=== PATIENT | female | born 1970 | race Caucasian/White ===

== ENCOUNTER 2021-03-04 09:53 | Day surgery (SDC) | payer BC ==
[2021-03-04] MEDS ORDERED: Ketorolac 30 MG/ML SDV IVPUSH ONE (09:54)
[2021-03-04] MEDS ORDERED: Ondansetron 4 MG/2 ML SDV IVPUSH ONE (09:54)
[2021-03-04] MEDS ORDERED: Dexamethasone 4 MG/ML 5 ML MDV IVPUSH ONE (09:54)
[2021-03-04] MEDS ORDERED: ceFAZolin 1 GM Vial IVPUSH ONE (09:54)
[2021-03-04] MEDS ORDERED: Dexmedetomidine 200 MCG/2 ML SDV IV ONE (09:54)
[2021-03-04] MEDS ORDERED: fentaNYL 100 MCG/2 ML SDV IV ONE (09:54)
[2021-03-04] MEDS ORDERED: Midazolam 1 MG/ML 2 ML SDV IV ONE (09:54)
[2021-03-04] MEDS ORDERED: Propofol 200 MG/20 ML SDV IV ONE (09:54)
[2021-03-04] MEDS ORDERED: Lidocaine 2% 5 ML SDV INJECT ONE (09:54)
[2021-03-04] MEDS ORDERED: Sodium Chloride 0.9% 10 ML Syringe FLUSH PRN (10:00)
[2021-03-04] MEDS ORDERED: Lactated Ringers 1,000 ML IV SCH (10:00)
[2021-03-04] MEDS ORDERED: Bupivacaine 0.5%/EPINEPHrine 1:200,000 10 ML SDV INJECT ONE (13:18)
--- NOTE | 2021-03-04 13:44 | PCM.OPNOTE ---
- General Post-Op/Procedure Note Date of Surgery/Procedure: 03/04/21 Operative Procedure(s): Rectal Exam under anesthesia. Lateral internal anal sphincterotomy Findings: Posterior midline anal fissure Pre Op Diagnosis: Rectal Pain Post-Op Diagnosis: Anal Fissure Anesthesia Technique: Local, MAC Primary Surgeon: Trevor Jennings Pathology: none EBL in mLs: 10 Complications: None Condition: Good
--- NOTE | 2021-03-04 14:18 | OR ---
DATE OF OPERATION: 03/04/2021 SURGEON: Trevor Jennings MD PREOPERATIVE DIAGNOSIS: Rectal pain. POSTOPERATIVE DIAGNOSIS: Posterior anal fissure. OPERATION PERFORMED: Rectal exam under anesthesia and lateral internal anal sphincterotomy. INDICATIONS FOR SURGERY: This 50-year-old female has persistent and severe pain in the rectum. This precludes complete examination in the outpatient setting. With presumed diagnosis of an anal fissure, the patient has been attempting conservative treatment for this pain with no improvement. FINDINGS: In the posterior midline, the patient has a moderate-sized acute anal fissure. The area is otherwise clean. No other rectal pathology is noted. PROCEDURE IN DETAIL: The patient was taken to the operating room. She was given intravenous sedation and placed in the dorsal lithotomy position. The rectal area was sterilely prepped with Betadine and draped. The perirectal region is infiltrated with Marcaine and then gentle anal canal dilation is performed digitally. The half-morin anal retractor is placed and careful examination of the anal canal circumferentially is carried out with identification of the anal fissure posteriorly in the midline. Because she has failed attempts at conservative management, sphincterotomy which had been clearly discussed with the patient preoperatively is performed. The left lateral anal mucosa was exposed and a small incision was made in the mucosa over the readily palpable internal anal sphincter muscle. This sphincter muscle was exposed, and then approximately 40% to 50% of the tight most external part of this sphincter muscle was divided with cautery preserving the majority of the muscle fibers intact, but relieving the tight band portion of it. With good hemostasis intact, the mucosal defect was then closed with a running 2-0 Vicryl suture. The fissure itself is cauterized and sharply debrided to remove any chronic granulation tissue and provide a good healing surface. Careful inspection showed no sign of bleeding or any other complication. A sterile dressing was placed and the patient was then taken from the operating room in satisfactory condition. ESTIMATED BLOOD LOSS: 10 mL. COMPLICATIONS: None. PROGNOSIS: Good. /[id number] RUBINA/JORGE LUISL
== END 2021-03-04 14:45 | disposition home or self-care (01) ==
LOC: FB.SDS 09:53
PROVIDERS: ATTEND Surgery
DX: K60.2 Anal fissure, unspecified (principal); Z88.0 Allergy status to penicillin; Z88.8 Allergy status to other drugs, medicaments and biological substances; Z98.84 Bariatric surgery status
CPT/HCPCS: 00902; 46080; J0690; J1100; J1885; J2250; J2405; J2704; J3010; J3490; J7120